=== PATIENT | female | born 1955 | race Caucasian/White ===

== ENCOUNTER 2024-07-02 10:14 | Day surgery (SDC) | payer OTHER ==
[2024-07-02] MEDS: Ringers Lactate 1,000 ML IV ONE (10:45)
[2024-07-02 11:27] LABS: Absolute Eosinophils 0.2 K/uL (0-0.5); Absolute Lymphocytes (CBC) 1.2 K/uL (0.7-4.9); Absolute Monocytes 1.1 K/uL (0.1-1.3); Absolute Neutrophil 10.4 K/uL (1.8-8.0); Basophils % 0.2 % (0-1.3); Eosinophils % 1.5 % (0-4.4); Hematocrit 32.9 % (36.0-45.0); Hemoglobin 11.2 g/dL (12.0-15.0); Lymphocytes % 9.4 % (15.3-44.8); MCH 30.1 pg (27.0-35.0); MCHC 34.1 g/dL (32.0-36.0); MCV 88.2 fL (80-100); Monocytes % 8.6 % (3.3-12.3); Neutrophils % 80.3 % (41.7-73.7); Platelets 300 thou/uL (152-406); RBC Red Blood Cell Count 3.73 M/uL (3.86-4.86); Red Cell Distribution Width 13.6 % (12.1-15.2)
--- NOTE | 2024-07-02 11:56 | RAD REPORT ---
EXAM: Chest Pa And Lat (2 Views) HISTORY: 69 years Female PREOP COMPARISON: None. FINDINGS: LUNGS/PLEURA: The lungs are clear. No pleural effusions or pneumothorax. No pulmonary edema. MEDIASTINUM: The mediastinal silhouette is within normal limits. CARDIAC: The cardiac silhouette is within normal limits. UPPER ABDOMEN: No significant abnormality. BONES: No acute abnormality. LINES/TUBES/OTHER: N/A IMPRESSION: No evidence of acute cardiopulmonary disease.
[2024-07-02] MEDS ORDERED: FENTANYL CITR 100 MCG/2 ML ONE (12:34)
[2024-07-02] MEDS ORDERED: LIDOCAINE 2% MPF 5 ML VIAL ONE (12:34)
[2024-07-02] MEDS ORDERED: ONDANSETRON 4 MG/2 ML VIAL ONE (12:34)
[2024-07-02] MEDS ORDERED: propofoL 200 MG/20 ML VIAL IV ONE (12:34)
[2024-07-02] MEDS ORDERED: CIPROFLOXACIN 400mg IV 400 MG/200 ML BAG IV ONE (12:46)
[2024-07-02] MEDS: BUPIVACAINE 0.5% PF 10 ML VIAL ONE (13:16)
[2024-07-02 14:44] VITALS: BP 112/62; TEMP 97.6; O2SAT 100
--- NOTE | 2024-07-02 14:50 | P.BOP ---
Preoperative diagnosis: Perineal infected subcutaneous mass 5x3cm with abscess Primary procedure: Excisional biopsy of Perineal infected subcutaneous mass 5x3cm Estimated blood loss: <10cc Specimen: imflammatory mass Findings: as above and abscess Anesthesia: General Complications: None Drain(s): Other (/" packing) Transferred to: Recovery Room Condition: Good
--- NOTE | 2024-07-02 15:06 | EKG ---
Test Date: 2024-07-02 Test Time: 12:11:29 Team Cdl Driver: FAVIO MEASUREMENT RESULTS: Intervals: Rate: 70 TX: 126 QRSD: 80 QT: 386 QTc: 416 [place]: P: -24 TX: 126 QRS: 48 T: 46 INTERPRETIVE STATEMENTS: Normal sinus rhythm Normal ECG No previous ECG available for comparison Electronically Signed On 07-02-24 15:05:32 [employer] by Jaime Gomes
--- NOTE | 2024-07-03 00:58 | OP ---
Date of Procedure: 07/02/2024 Surgeon: Conrad Ramos MD Preoperative Diagnoses: Perineal infected subcutaneous mass with cellulitis and abscess 5 x 3 cm. Postoperative Diagnoses: Perineal infected subcutaneous mass with cellulitis and abscess 5 x 3 cm. Procedures: Excisional biopsy of perineal infected subcutaneous mass, 5 x 3 cm with drainage of an a bscess. Estimated Blood Loss: Less than 10 cc. Specimens: Inflammatory mass. Findings: Inflammatory mass with abscess. Anesthesia: General plus local. Packings: A quarter of an inch iodoform. Indications: This is the case of a 69-year-old patient, who comes to us with a perineal and extendin g to the external labia abscess cellulitis, progressed in the last 48 hours, was seen in the office f ew hours ago, booked for an incision and drainage of an abscess with excisional biopsy of that inflam matory mass. Benefits, alternatives, and risks fully explained, which include, but not limited to in fection, bleeding, damage to adjacent structures, anesthesia complication, recurrence, OH, and even d eath. She also understands this may not relieve the symptoms. She might need more than one surgical intervention. She understands she will require wound care. She signed a consent. Description Of Procedure: The area of concern was marked by me and the patient in the holding room. The patient was brought into the operating room and placed in supine position. Anesthesia was induc ed without complication. The patient was placed in supine position, and the right genitalia and valeriy sujata area were prepped and draped in sterile fashion. A time-out was called. Local anesthesia was a pplied followed by sharp incision of the skin. The area of the entire inflammatory process was about 5 x 3 cm, there was an inflammatory mass present there. Etiology of that is unknown. We sent it fo r biopsy and then the loculations of abscess were explored, opened, profusely irrigated. Hemostasis was obtained and then I packed with iodoform quarter of an inch after injecting local anesthetic. Th e patient tolerated the procedure well. The patient was sent to Recovery in stable condition. Spong e count and instrument counts correct. HM/MODL Voice ID: [id number] Report ID: [id number]
--- NOTE | 2024-07-03 01:34 | DS ---
Date of Discharge: 07/02/2024 Diagnosis: Perineal infected subcutaneous mass with abscess. Procedure: Excisional biopsy of perineal infected subcutaneous mass with drainage of an abscess. Condition: Stable. Disposition: Home. Activity: As tolerated. No heavy lifting. Discharge Instructions: Follow up in my office this Friday. For dressing changes, she has the optio n, we gave her some of the quarter of an inch packing to change the packing, it is very tender for he r. She preferred to wait until Friday. In that case, she has on Friday to be able to change the omayra ssings. If over the weekend, she had any fevers or get worse, please remove the packing and repack i t again and come to the ER if that fever persist. We explained to her the importance of antibiotics that were given to her. Now concerning the codeine, she is saying that she has codeine hallucination s. She does not think she has any allergies to hydrocodone and still she was prescribed previously a nd I am going to cancel that order and call some Ultracet and she was advised not to take more of the m at the same time. RUDI/LUZ Voice ID: [id number] Report ID: [id number]
== END 2024-07-02 15:06 | disposition home or self-care (01) ==
LOC: OR 10:14
PROVIDERS: ATTEND Surgery
PROC: 0JBB0ZZ Excision of Perineum Subcutaneous Tissue and Fascia, Open Approach (ICD-10-PCS; principal; 2024-07-02 12:52)
DX: L02.215 Cutaneous abscess of perineum (principal); L03.315 Cellulitis of perineum; L08.9 Local infection of the skin and subcutaneous tissue, unspecified; I96 Gangrene, not elsewhere classified
CPT/HCPCS: 93005; 87070; 85025; 80048; 36415; 87205 ×2; 88304; 87075; 87077; 87186; 71046; 11426; J2704; J2003; J3010; J2405; J0744; J7120